=== PATIENT | male | born 1940 | race Caucasian/White ===

== ENCOUNTER → 2017-09-01 | Outpatient (REF) | payer OTHER | LOC: ZZSENDIN 12:00 | PROVIDERS: ATTEND Urology | DX: C61 Malignant neoplasm of prostate (principal) | CPT/HCPCS: 88305; 88344 ==

== ENCOUNTER 2017-12-31 00:14 | Day surgery (SDC) | payer OTHER ==
[2017-12-24 09:57] LABS: PLATELET COUNT, AUTOMATED 369 K/uL (150-450)
--- NOTE | 2017-12-30 16:57 | HISTORY AND PHYSICAL ---
DATE OF ADMISSION: December 31, 2017 CHIEF COMPLAINT Prostate cancer. HISTORY OF PRESENT ILLNESS Patient is a 77-year-old white male who was noted to have an elevated PSA up to 10 and 11 this past summer. He was subsequently referred to Urology Clinic by the [facility] and underwent an evaluation. A digital rectal exam revealed bilateral nodularity with approximately a 40 mL volume prostate. He subsequently underwent a transrectal ultrasound biopsy on the 01 of September. At that time, he had a prostatic volume of 32 mL and had 12 biopsy cores taken. His pathology showed Danelle 3 + 4 = 7 adenocarcinoma primarily on the left side with a maximum core of 30%. His metastatic evaluation was normal. After consultation with Dr. Fonseca of Radiation Oncology, he has elected to undergo primary brachytherapy with androgen deprivation therapy added in the short term. He received a Lupron injection on the 16 of December, and he is currently on Casodex. He is now being brought to the operating room for planned prostatic ultrasound step section mapping in anticipation for brachytherapy planning. PAST MEDICAL HISTORY 1. Degenerative joint disease. 2. Diverticulitis. 3. Asthma. 4. Gastroesophageal reflux disease. PAST SURGICAL HISTORY 1. Appendectomy. 2. Cataracts. 3. Diverticulitis surgery. 4. Fractured wrist repair. CURRENT MEDICINES 1. Casodex. 2. Colace. 3. Lactobacillus. 4. Multivitamins. ALLERGIES No known drug allergies. SOCIAL HISTORY Patient lives in [place], [place]. He is a with his primary [facility]. He does have a history of smoking, but quit 20 years ago. FAMILY HISTORY Notable for prostate cancer in two brothers and two aunts with breast carcinoma. REVIEW OF SYSTEMS Patient denies chest pain, shortness of breath, nausea, vomiting, fever, chills, productive cough, liver disease, or bleeding disorder. PHYSICAL EXAMINATION GENERAL: Patient is a well-developed, well-nourished, 77-year-old male in no acute distress. HEENT: Normocephalic, atraumatic. CHEST: Clear to auscultation bilaterally. CARDIOVASCULAR: Regular rate and rhythm. ABDOMEN: Soft, nontender. No masses are palpated. GENITOURINARY: Deferred to the OR. EXTREMITIES: Without clubbing, cyanosis, or edema. NEUROLOGIC: Nonfocal. IMPRESSION A 77-year-old white male with a T2b prostate cancer, [place] 3 + 4 = 7, and a PSA of approximately 11, who has opted for primary brachytherapy treatment with androgen deprivation therapy. PLAN We will perform a transrectal ultrasound step section mapping in anticipation for brachytherapy planning. MTDD
[~2017-12-31] VITALS: Ht 177.8 cm; Wt 93.9 kg
[~2017-12-31 00:14] MED LIST: BICA50TA41 PO; DOCU-416 PO; GINK60CA11 PO; KRIL1CAP19; LACT1CAP4 PO; METF-452 PO; MULT-1335 PO; SAW160CA26 PO; UBID30CA; UBIQ100C3 PO
[2017-12-31 06:44] VITALS: BP 126/72
[2017-12-31] MEDS ORDERED: LIDOCAINE MPF 1% 5 ML VIAL ONE (07:21)
[2017-12-31] MEDS ORDERED: PROPOFOL EMUL(*) 10MG/ML 20 ML 20 ML ONE (07:21)
[2017-12-31] MEDS ORDERED: ONDANSETRON 4 MG/2 ML VIAL ONE (07:21)
[2017-12-31] MEDS ORDERED: DEXAMETHASONE SOD 4 MG/ML VIAL ONE (07:21)
[2017-12-31] MEDS ORDERED: fentaNYL CITR 100 MCG/2 ML AMP ONE (07:22)
[2017-12-31] MEDS ORDERED: KETAMINE HCL 200 MG/20 ML MDV ONE (07:24)
[2017-12-31] MEDS ORDERED: MIDAZOLAM 2 MG/2 ML VIAL IVP PRN (09:20)
[2017-12-31] MEDS ORDERED: LIDOCAINE/SOD BICARB 8.4% SYR ID ONE (09:20)
[2017-12-31] MEDS ORDERED: ceFAZolin(*) 1 GM VIAL 1 GM in NS(*) 0.9% 100 ML ADDVANT BAG 100 ML IVPB ONE (09:20)
[2017-12-31] MEDS ORDERED: NORMOSOL R SOLN(*) 1000 ML BAG 1,000 ML IV PRN (09:20)
[2017-12-31] MEDS ORDERED: FAMOTIDINE 20 MG TAB PO ONE (09:20)
--- NOTE | 2017-12-31 12:12 | OPERATIVE REPORT 1 ---
EVENT DATE: December 31, 2017 SURGEON: Bob Bello MD ANESTHESIOLOGIST: Jose Knapp MD ANESTHESIA: General. PREOPERATIVE DIAGNOSIS Prostate cancer. POSTOPERATIVE DIAGNOSIS Prostate cancer. PROCEDURE PERFORMED Transrectal ultrasound step section mapping of prostate for radiotherapy planning. ESTIMATED BLOOD LOSS Minimal. IV FLUIDS Crystalloids. DRAINS None. COMPLICATIONS None. CONDITION The patient was taken to the recovery room awake and in stable condition. STATEMENT OF MEDICAL NECESSITY Patient is a 77-year-old white male who has found to have a 3+4=7 adenocarcinoma in 5 of 12 biopsies, primarily on the left side. His metastatic evaluation was danny and he has elected to undergo a combination of androgen deprivation therapy with brachytherapy under the direction of Dr. Fonseca. He is now being brought to the operating room for planned ultrasound mapping in anticipation for brachytherapy planning. DESCRIPTION OF PROCEDURE Patient was brought to the operating room. After general anesthetic was obtained, he was placed in the dorsal lithotomy position using the Yellofin stirrups and a small roll was placed under his buttocks to tilt his pelvis slightly upward. A transducer gel was placed in the patient's rectum. The stabilizer was placed at the end of the table and the ultrasound probe placed in the cradle of the stabilizer. His position was recorded to be reproduced during brachytherapy treatment. The ultrasound probe was introduced in the patient's rectum atraumatically. The offset balloon was inflated and real-time ultrasound of the prostate was performed using the 5 mm grid. Step section mapping was performed starting at the base and proceeding at the apex in 5 mm increments. At each step, the area of the prostate was calculated using the cursor to outline the peripheral margin of the prostate. A total of six step sections were performed to give a total volume of 20.5 cc. Following this, the transducer was turned perpendicularly and the length measured from the base of the apex 27 mm. During the ultrasound, a Ferrell catheter had been placed to aid in location of the urethra and bladder neck. Following completion of the procedure, the ultrasound balloon was deflated and the probe was removed. The team from the radiation oncology collected their data via the computer and were satisfied of the information they obtained. The patient was then awakened in the operating room and taken to the recovery area in stable position. PLAN We will allow the patient to be discharged home today. We will have him return to the operating room in two to three weeks for brachytherapy treatment under the direction of Dr. Fonseca. [facility]
== END 2017-12-31 09:45 | disposition home or self-care (01) ==
LOC: OR 00:14
PROVIDERS: ATTEND Urology
DX: C61 Malignant neoplasm of prostate (principal)
CPT/HCPCS: 36415; 76873; 81001; 84153; 85025; 87088; J0690; J1100; J2001; J2405; J2704; J3010; J3490; J7050; 82040; 82247; 82310; 82374; 82435; 82565; 82947; 84075; 84132; 84155; 84295; 84450; 84460; 84520

== ENCOUNTER 2018-01-19 08:58 | Outpatient (RCR) | payer OTHER ==
--- NOTE | 2017-12-01 20:21 | ONCOLOGY CONSULTATION ---
EVENT DATE: December 01, 2017 DIAGNOSIS [place] 7 and Danelle 6 adenocarcinoma of the prostate. Tumor identified on ultrasound-guided biopsies of the prostate dated September 01, 2017. Five of 12 core biopsies were positive for malignancy. Tumor was associated with a large palpable nodule in the left lobe of the gland. Pre-biopsy PSA of 10.9 ng/mL. Stage clinical TIIB NX M0, grade 7. HISTORY This is a 77-year-old gentleman who was referred to me by Dr. Bello and his [facility] providers. Patient was seen accompanied with his spouse. According to the patient, the HI has been monitoring his PSA for the last several years. He recalls values in the 8 range with recent elevation to 10.9 ng/mL. He was referred to Dr. Bello initially a year ago and advised to have a biopsy based on abnormal findings, but he elected to defer that for approximately a year. He does have a brother with prostate carcinoma who was being treated in [place]. He also has another brother who had a history of prostate carcinoma approximately 20 years ago, however, recently with leukemia. The patient was referred to Dr. Bello, who did an ultrasound-guided biopsy of the prostate due to the PSA elevation and abnormal gland. That procedure was performed on September 01, 2017. The prostate measurements were 35 mm x 45 mm in width by 38 mm in length, prostate volume 32 cc. Twelve quadrant biopsies were obtained with ultrasound guidance, and Danelle 6 and Danelle 7 carcinoma was noted to be involving approximately 25% to 30% of almost all core biopsies in the left lobe. A total of six biopsies were positive in the left lobe where the nodule was palpable. All six biopsies on the right side were negative for carcinoma. The patient underwent staging evaluation with CT of the abdomen and pelvis and bone scan in September of this year. This was requested by Lesli Quintero at the request of Dr. Bello. I do not have the films to review today, but the report stated the patient had no evidence of metastatic disease. He did have uptake at lumbar 3 on the bone scan as well as the right 10th rib. The CT scan revealed degenerative changes at those locations and a possible healing fracture of the right 10th rib. No evidence of metastatic disease was identified. He did have moderate sigmoid diverticula. No evidence of acute diverticulitis, however. The CT scan revealed a small sclerotic focus in the right femoral head which was felt to be a possible bone island. The patient denies any new or persistent bone pain. He has an AUA score of 9 and baseline nocturia times two. He does drink one to two cups of coffee a day and enjoys drinking beer in the evening. He states his bowels are regular and move one time per day, possibly two. Denies any history of prostatitis or any dysuria. No hematuria. The patient states he has taken prostate supplements for many years including saw palmetto, and recently a year ago, he switched to Prost-X. He states that he does not like to take medications in general, but he does take supplements over the counter. The patient stated from the onset he would like to discuss prostate brachytherapy today. He has discussed therapeutic options with Dr. Bello. He also wished for me to review additional options. PAST MEDICAL HISTORY 1. Prostate carcinoma. 2. DJD. 3. History of diverticulitis times three. 4. Asthma. SURGICAL HISTORY 1. Appendectomy in 1969. 2. Previous pelvic surgery for diverticular abscess. SOCIAL HISTORY Patient is retired, three children, ages 47, 57, and 59. He is , accompanied by his spouse today (Iggy Ponce). Smoking history of two packs per day for 40 years. He did quit smoking 20 years ago. FAMILY HISTORY Notable for brother dying of leukemia at age 83. Two brothers had prostate carcinoma. One older brother is receiving Lupron in [place]. Two aunts with breast carcinoma. CURRENT MEDICATIONS 1. Prost-X supplement. 2. Probiotic. 3. Krill oil softgels. 4. Co-enzyme Q10. 5. Oxygen 2L at night. ALLERGIES: None listed by patient. REVIEW OF SYSTEMS Minor fatigue. Denies any significant cough or any chest pain or palpitations. He does have a history of shingles over the left chest in the past. History of diverticulitis times three, last episode approximately four years ago. PHYSICAL EXAMINATION GENERAL: A 77-year-old gentleman of medium build. VITAL SIGNS: BP 113/74, pulse 76, respirations 16, temperature 97.1, O2 sat 90% on room air. Height 69 inches. Weight 211 pounds. HEENT: Unremarkable. LYMPHATICS: No peripheral lymphadenopathy is identified. LUNGS: Expiratory rhonchi bilaterally, consistent with prior tobacco use. HEART: Heart sounds regular with no audible murmur. ABDOMEN: Soft. No gross organomegaly, mass, or tenderness. RECTAL: Notable for prominent nodule measuring approximately 2 cm in length x 1.5 cm in width on the peripheral zone to the mid portion of the gland on the left lobe. No tenderness noted. Right lobe exam was unremarkable. EXTREMITIES: No edema or cyanosis. NEUROLOGIC: Grossly intact. IMPRESSION This is a 77-year-old gentleman with recently diagnosed Danelle 6 and Danelle 7, intermediate to high-risk adenocarcinoma of the prostate. Adverse factors include a PSA above 10, palpable tumor nodule, and multiple positive core biopsies including [place] 7 tumor. RECOMMENDATIONS My first recommendation to the patient was to proceed with multi-agent therapy to include hormone therapy suppression with Lupron or alternative LDH therapies, plus external beam radiation therapy. The advantage of this program is nonoperative approach to deliver 72 to 76 Gy in 38 to 40 fractions to the prostate, covering a wide margin around the gland for the first five weeks with subsequent cone-down boost times two to minimize adverse effects to normal structures. The treatment course would be limited to the prostate and seminal vesicles with no attempt to treat the pelvic lymph nodes due to his history of diverticulitis and negative CT in March. Second recommendation would be to proceed with Lupron for a minimum of six months plus external beam radiotherapy to 45 Gy, to be followed by a palladium 103c boost. The advantage of that program is to cover any occult extracapsular extension in the seminal vesicles for the first phase of the treatment program and then do the high-dose boost to the gland to deliver an additional 75 to 90 Gy. The latter would be delivered over a time frame of approximately six weeks. Option three to is proceed with ADT with prostate brachytherapy only. In that option, we would reserve external beam radiotherapy for any significant rise in the PSA over the next one to five years. Based on the features of the patient's tumor, I would predict he has a relative risk of extracapsular extension from appropriate nomograms on the order of 40% to 50%, risk of lymph node or seminal vesicle involvement would be approximately 5%. The patient informs me that he and his travel to [place] for six months, and he would like to have the prostate seed implant as his primary therapeutic option at this time. He does appear to understand the rationale for the external beam radiotherapy, but he would like to expedite the treatment program. He has known several patients who have done quite well with the prostate brachytherapy. The patient is agreeable to proceed with Lupron for a time frame of four to six months and recognizes the value when accelerating his PSA response. I did not finish the consultation until after 5:00 p.m., I will contact Dr. Bello in the morning and see if his office can assist with the delivery of the Lupron or request from [facility] and coordinate ultrasound mapping procedure. I would anticipate the prostate brachytherapy to proceed three weeks after the images are acquired. That would give us one week for the radiation planning and two weeks to get the Pd 103 seeds to [facility] for delivery and OR coordination. All questions were answered to the patient's satisfaction which included discussion of potential acute late side effects and therapeutic alternatives. I would see him again the week of the seed implant to do an H and P and sign consent at that juncture as well. Thank you for the referral and excellent records which accompanied the patient today. ANA MARIA
[2017-12-02 14:36] LABS: PLATELET COUNT, AUTOMATED 315 K/uL (150-450)
[2018-01-21] MEDS ORDERED: PHEN200T32 PO (12:12)
[2018-01-21] MEDS ORDERED: CIPR-345 PO (12:14)
[2018-01-21] MEDS ORDERED: TAMS0.4C25 PO (12:14)
== END 2018-02-28 ==
LOC: RAON 08:58
PROVIDERS: ATTEND Radiology Radiation Oncology
DX: Z51.0 Encounter for antineoplastic radiation therapy (principal); C61 Malignant neoplasm of prostate
CPT/HCPCS: 36415; 77280; 77295; 77300; 77332; 77470; 77790; 82040; 82247; 82310; 82374; 82435; 82565; 82947; 84075; 84132; 84153; 84155; 84295; 84450; 84460; 84520; 85025; 99203; 99212

== ENCOUNTER 2018-01-21 01:57 | Day surgery (SDC) | payer OTHER ==
--- NOTE | 2018-01-19 12:06 | ONCOLOGY HISTORY AND PHYSICAL ---
EVENT DATE: January 21, 2018 The patient will undergo a Palladium-103 seed implant scheduled in two days on January 21, 2018. CHIEF COMPLAINT Patient is here for preoperative history and physical, review procedure and sign consent. HISTORY OF PRESENT ILLNESS This is a 77-year-old gentleman who was diagnosed with a Danelle 6 and [place] 7 adenocarcinoma of the prostate on ultra-sound guided biopsies dated September 01, 2017. Five of 12 core biopsies were all positive for malignancy. The tumor is predominantly in the left lobe corresponding to a palpable nodule at that location. Right lobe benign. Ultrasound measurements of the prostate were 35 mm x 45 mm x 38 mm. Pre-biopsy PSA 10.9 ng/mL. The patient was advised regarding therapeutic options. Although I favored a combination of external beam radiotherapy plus a seed implant boost, the patient ultimately elected for prostate brachytherapy as monotherapy at this time. He was agreeable to hormone therapy four to six months as a radiosensitizer and received Lupron injection prior to this procedure. He also was on bicalutamide for 30 days. Patient previously was taking herbal agents predominantly but has been off those agents for the last two weeks in preparation for the seed implant. Patient had recent laboratory studies on December 24, 2017, which were all normal. No respiratory complaints or recent infections. He presently has variable voiding function with baseline nocturia x2 to 4 at night. Recent UA is negative. Signed consent was obtained in the oncology office today reviewing potential acute late side effects and therapeutic alternatives. Acute side effects typically include urinary urgency and frequency, occasional dysuria. There is a 1 in 20 chance of obstructive neuropathy and he would need to use a straight cath if that happens for one to three months. Rare complications with the radiation proctitis or cystitis. Procedure will be performed by Dr. Bello with a transperineal placement of needles for afterloading Palladium-103 seeds. PAST MEDICAL HISTORY 1. Prostate carcinoma. 2. DJD. 3. Diverticulitis. 4. Asthma. PAST SURGICAL HISTORY 1. Prior appendectomy. 2. Previous pelvic surgery for diverticular abscess. SOCIAL HISTORY Patient is retired, three children. He lives 25 [place] time. He is seen with his , Iggy. Smoking history of two packs per day for 40 years. He quit smoking 20 years ago. He lives in [place] in the summer and [facility] in the winter. He will be departing for [place] within a week. FAMILY HISTORY Notable for a brother who had leukemia at age 83. Two brothers have prostate carcinoma. Two aunts with breast cancer. CURRENT MEDICATIONS Colace. ALLERGIES None. REVIEW OF SYSTEMS Essentially negative with exception of some sinus drainage in the morning. Remote history of shingles over the left chest wall in the past. Minor fatigue. PHYSICAL EXAMINATION GENERAL: Pleasant 77-year-old male. VITAL SIGNS: Blood pressure 114/66, pulse 77, O2 sat 94% on room air. LUNGS: Clear bilaterally. CARDIOVASCULAR: Heart sounds regular. No audible murmur. No gross organomegaly. EXTREMITIES: No edema or cyanosis. ASSESSMENT Intermediate-risk Danelle 7 adenocarcinoma of the prostate, predominantly involving the left lobe. PLAN Patient will undergo brachytherapy on of this week with Dr. Bello. He will be discharged later in the day. He will return on March 02, at which point we will do the post seed implant CT dosimetry, followup PSA and see the patient as well. He will then be returning back to [place]. I have also informed the patient the risk of small chance he may require external beam radiotherapy within the next year and I would outline that at a future date depending on response. All questions answered to his satisfaction and consent forms signed over an one-hour appointment this morning. ANA MARIA
[~2018-01-21] VITALS: Ht 177.8 cm; Wt 94.3 kg
[2018-01-21] MEDS ORDERED: IOTHALAMATE MEGLU 172MG/ML BTL 250 ML IVPB ONE (08:23)
[2018-01-21 08:56] VITALS: BP 127/74
[2018-01-21] MEDS ORDERED: LIDOCAINE/SOD BICARB 8.4% SYR ID ONE (09:10)
[2018-01-21] MEDS ORDERED: NORMOSOL R SOLN(*) 1000 ML BAG 1,000 ML IV PRN (09:10)
[2018-01-21] MEDS ORDERED: FAMOTIDINE 20 MG TAB PO ONE (09:10)
[2018-01-21] MEDS ORDERED: ceFAZolin(*) 1 GM VIAL 1 GM in NS(*) 0.9% 100 ML ADDVANT BAG 100 ML IV ONE (09:10)
[2018-01-21] MEDS ORDERED: MIDAZOLAM 2 MG/2 ML VIAL IVP PRN (09:10)
[2018-01-21] MEDS ORDERED: PROPOFOL EMUL(*) 10MG/ML 20 ML 40 ML ONE (10:09)
[2018-01-21] MEDS ORDERED: ONDANSETRON 4 MG/2 ML VIAL ONE (10:16)
[2018-01-21] MEDS ORDERED: DEXAMETHASONE SOD 4 MG/ML VIAL ONE (10:16)
[2018-01-21] MEDS ORDERED: fentaNYL CITR 100 MCG/2 ML AMP ONE ×2 (10:18→10:52)
[2018-01-21] MEDS ORDERED: OXYBUTYNIN CHL 5 MG TAB ONE (12:10)
[2018-01-21] MEDS ORDERED: PHEN200T32 PO (12:12)
[2018-01-21] MEDS ORDERED: CIPR-345 PO (12:14)
[2018-01-21] MEDS ORDERED: TAMS0.4C25 PO (12:14)
--- NOTE | 2018-01-21 14:12 | OPERATIVE REPORT 1 ---
EVENT DATE: January 21, 2018 SURGEON: Bob Bello MD ANESTHESIOLOGIST: Shan Causey M.D. ANESTHESIA: General. HOG FEEDER: Juan Fonseca MD PREOPERATIVE DIAGNOSIS Prostate cancer. POSTOPERATIVE DIAGNOSIS Prostate cancer. PROCEDURE PERFORMED 1. Transrectal ultrasound-guided transperineal prostate needle placement for brachytherapy. 2. Anesthetic flexible cystoscopy. ESTIMATED BLOOD LOSS 10 cc. IV FLUIDS Crystalloids. DRAINS 16-Hungarian 3-way Ferrell catheter. COMPLICATIONS None. CONDITION The patient was taken to recovery room awake and in stable condition. STATEMENT OF MEDICAL NECESSITY The patient is a 77-year-old white male who was noted to have TTB 3+4=7 prostate cancer with PSA of approximately 11 who after consulting with radiation oncology has elected to undergo brachytherapy under the direction of Dr. Fonseca. He is now being brought to the operating room for planned procedure. DESCRIPTION OF OPERATION PERFORMED The patient was brought to the operating room after general anesthetic was obtained. He was placed in the dorsal lithotomy position in the [facility] in a position that was recorded from his prior mapping procedure. At this point, his rectum was filled with transistor jelly. He was prepped and draped sterilely. A scrotal stay stitch was placed to provide exposure of the perineum. A 16-Hungarian Ferrell catheter was placed with dilute contrast in the balloon and in the bladder with the irrigation port plugged. The ultrasound was placed in the cradle of the stabilizer and introduced into the patient's rectum atraumatically. Real-time ultrasound was then performed using the 5 mm grid in both sagittal and transverse planes. He was noted to have a significant amount of calcifications on the left prostate, primarily at the mid portion at the peripheral transition zone junction. After centering the ultrasound probe, it was moved to the apex with fluoroscopic imaging obtained to elder the apex and base on the fluoroscopic screen to aid in needle placement. At this point, I placed a total of 24 needles transperitoneally using transrectal ultrasound guidance and a pre-planned urethral-sparing technique under the direction of Dr. Fonseca. Following placement of the needles, Dr. Fonseca removed the needles and dropped a total of 68 seeds. Following completion of seed placement, the Ferrell catheter was removed and we performed a flexible cystoscopy, which revealed a normal appearing urethra without evidence of foreign body or rectal bleeding. Upon entering the bladder, his bladder mucosa was smooth without tumors or other lesions. There were no foreign bodies or active bleeding noted. The scope was removed. A 16-Hungarian 3-way Ferrell catheter was placed and placed to gravity drainage. Scrotal stay stitch was removed. The ultrasound offset balloon was deflated and the ultrasound probe removed atraumatically from the rectum. He was taken down from the dorsal lithotomy position, awakened in the operating room and taken to the recovery area in stable condition. ANA MARIA
--- NOTE | 2018-01-21 14:17 | RADIOLOGY IMAGING REPORT ---
[place] [facility] [place] NAME: Kleber Ponce : 1940 MR: [id number] V: [id number] EXAM DATE: ORDERING PHYSICIAN: SOPHIE VELA TECHNOLOGIST: Location: [facility] [place] Patient: Kleber Ponce : 1940 Visit/Account:[id number] Date of Sevice: 01/21/2018 C-ARM FLUORO 1 HR HISTORY: BACHYTHERAPY PROSTATE SEED IMPLANTS Additional history: None COMPARISON: None. FINDINGS: A single fluoroscopic image demonstrates placement of numerous radiotherapy seeds over the expected l ocation of the prostate. No displaced seeds identified. IMPRESSION: Brachytherapy seed placement Report Dictated By: Jean-Pierre Quigley MD at 01/21/2018 2:12 PM Report E-Signed By: Jean-Pierre Quigley MD at 01/21/2018 2:13 PM WSN:[id number]
--- NOTE | 2018-01-21 15:31 | OPERATIVE REPORT 1 ---
EVENT DATE: January 21, 2018 SURGEON: Juan Fonseca MD/Bob Bello MD ANESTHESIOLOGIST: Shan Causey MD ANESTHESIA: General. PREOPERATIVE DIAGNOSIS Adenocarcinoma of the prostate. POSTOPERATIVE DIAGNOSIS Adenocarcinoma of the prostate. PROCEDURE PERFORMED Intraoperative placement of radioactive palladium 103 seeds with ultrasound fluoroscopy guidance. DESCRIPTION OF PROCEDURE A separate note has been dictated by Dr. Bello regarding the urologic portion of the procedure. Patient was brought to the OR suite and placed under general anesthesia. Perineum was prepped in a sterile fashion. A Ferrell catheter was placed into the bladder with contrast in the Ferrell balloon. C-arm fluoroscopy was brought into the room for visualization of the operative field. Locations of the apex and base of the prostate were noted. According to the preplan, a total of 24 needles were placed directly into the prostate using a combination of sagittal and transverse ultrasound imaging and C-arm fluoroscopy imaging. After all needles were in satisfactory position, I entered the operative field. These were preloaded needles. I subsequently placed 68 palladium 103 seeds directly into the prostate using direct visualization using C-arm fluoroscopy. No complications were encountered during the procedure. Dr. Bello did a cystoscopy at the end of the procedure, and the patient was transferred to the recovery room in stable condition. PLAN He will be discharged to home later today and follow up in the Oncology Clinic for instructions. ANA MARIA
== END 2018-01-21 12:35 | disposition home or self-care (01) ==
LOC: OR 01:57
PROVIDERS: ATTEND Radiology Radiation Oncology
DX: C61 Malignant neoplasm of prostate (principal); J45.909 Unspecified asthma, uncomplicated; Z87.891 Personal history of nicotine dependence; K21.9 Gastro-esophageal reflux disease without esophagitis
CPT/HCPCS: 55875; 76000; 76965; 77778; C2640; J0690; J1100; J2405; J2704; J3010; J7050; Q9958

== ENCOUNTER 2018-03-02 08:28 | Outpatient (RCR) | payer OTHER ==
[~2018-03-02 08:28] MED LIST changes: +CIPR-345 PO; +PHEN200T32 PO; +TAMS0.4C25 PO
[2018-03-02 09:49] VITALS: BP 107/83
[2018-03-02] MEDS ORDERED: UBIQ100C3 PO (11:54)
[2018-03-02] MEDS ORDERED: ASCO-182 PO (11:54)
--- NOTE | 2018-03-02 13:48 | ONCOLOGY FOLLOW UP NOTE ---
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 Patient presenting with a palpable nodule with a PSA of 10.9 ng/mL. 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 Bello on January 21, 2018. Patient elected not to have external beam radiotherapy. INTERVAL HISTORY Mr. Ponce was seen with his prior to his departure to [place] for the winter. As expected, he did have an increase in urinary urgency and frequency following the procedure, which was most notable by week 2. He generally has nocturia x3 to 4. Occasional bowel urgency. He states his bowels have always been somewhat loose even before the procedure. Patient denies any bone pain. He is not having any hot flashes. PSA was drawn earlier today, which is undetectable at less than 0.06. Patient also had a baseline CT scan this morning to do the final computer dosimetry on the Palladium-103 seeds. Those films were reviewed with the patient on the monitor today and the brachytherapy seeds appear to be in adequate position. MEDICATIONS Tamsulosin 0.4 mg every day. ALLERGIES No known allergies. PAST MEDICAL HISTORY 1. Prostate carcinoma. 2. DJD. 3. Diverticulitis. 4. Asthma. PAST SURGICAL HISTORY 1. Prior appendectomy. 2. Previous pelvic surgery for diverticular abscess. REVIEW OF SYSTEMS Notable for the bowel and urinary symptoms as listed above. PHYSICAL EXAMINATION Deferred. The purpose of today's visit was to determine clinical status prior to departure to [place] and manage any side effects. DISPOSITION Patient's PSA has normalized to 0 at this time. I fully expected that this with the combination therapy. I told Mr. Ponce that the PSA may come up slowly, however, over the first two years following treatment and not to be surprised by that. Intentionally, seeds were not placed into the upper median lobe to lower the risks of any obstructive uropathy. External beam radiotherapy was held back unless there is a rise in PSA down the road. That was the patient's choice. There is data for seeds alone, however, for Zamora 7 malignancies. He will now travel to [place] and call us if he is having any adverse effects. I did renew his Flomax and encouraged him to take at least one tablet in the evening. If he has obstructive symptoms, he should increase this to b.i.d. Patient will contact Dr. Magallon when he returns. [facility] [place] and in [place] for his general [facility] care. ANA MARIA
--- NOTE | 2018-03-02 16:10 | RADIOLOGY IMAGING REPORT ---
FACILITY: [facility] PATIENT NAME: Kleber Ponce : 1940 MR: [id number] V: [id number] EXAM DATE: ORDERING PHYSICIAN: MAGDALENO MOON TECHNOLOGIST: Location: [facility] Patient: Kleber Ponce : 1940 Visit/Account:[id number] Date of Sevice: 03/02/2018 ABDOMEN/PELVIS W/O CONTRAST HISTORY: Prostate cancer TECHNIQUE: Axial images acquired through the abdomen/pelvis. Coronal and sagittal reformatting also performed. No IV contrast administered.Dose Lowering Technique One of the following dose optimization techniques was utilized in the performance of this exam: Autom ated exposure control; adjustment of the mA and/or kV according to the patient's size; or use of an i terative reconstruction technique. Specific details can be referenced in the facility's radiology C T exam operational policy. COMPARISON: None. FINDINGS: Visualized lung bases: There is a small amount of scarring/atelectasis in the lung bases Hepatobiliary: Negative. Spleen: Negative. Adrenals: Negative. Pancreas: Negative. Kidneys ureters and bladder: There is a 2 mm nonobstructing calculus lower pole of the left kidney. There is a 2.7 cm cyst anterior upper pole of the left kidney as well. There is no evidence of hydro nephrosis or hydroureter. There are several calcifications along the posterior inferior aspect the b ladder. This could be calcifications within the bladder wall related to recently passed calculi. Genitalia: Brachytherapy seeds are noted within the prostate gland GI: There is diverticulosis seen throughout the colon. In the sigmoid colon there is a focal area o f wall thickening with infiltrative changes in the pericolonic fat consistent with acute/subacute div erticulitis. Just superior to this area is a 4.1 x 4 cm for by 4 cm thick-walled collection with air in some internal debris, likely a walled off abscess . There is no free intraperitoneal air Vessels/spaces/nodes: There are small shotty common femoral and external iliac lymph nodes all measu ring less than 1 cm horizontal short axis. There are mild to moderate atherosclerotic calcifications the abdominal aorta and branch vessels Bones/soft tissues: There spondylotic changes in the thoracolumbar spine Additional findings: None pertinent. IMPRESSION: There is diverticulosis of the colon. In the sigmoid colon there is a focal area of wall thickening with infiltrative changes in the pericolonic fat consistent with acute/subacute diverticulitis. Just superior to this area is a 4.1 x 4 x 4 cm thick-walled collection with air and some internal debris which likely represents a walled off abscess. There is no evidence of free intraperitoneal air. Nonobstructing nephrolithiasis left kidney. There are several calcifications along the posterior inferior aspect of the bladder. This could be c alcination within the bladder wall or related to a recently passed calculi. Results were called to MAGDALENO MOON at 03/02/2018 4:01 PM. Report Dictated By: Clarita Pritchard MD at 03/02/2018 3:49 PM Report E-Signed By: Clarita Pritchard MD at 03/02/2018 4:05 PM WSN:[id number]
== END 2018-05-03 11:48 | disposition home or self-care (01) ==
LOC: SPU 08:28
PROVIDERS: ATTEND Radiology Radiation Oncology
DX: Z51.0 Encounter for antineoplastic radiation therapy (principal); C61 Malignant neoplasm of prostate; K57.30 Diverticulosis of large intestine without perforation or abscess without bleeding; N20.0 Calculus of kidney; R35.1 Nocturia
CPT/HCPCS: 36415; 74176; 84153; 99212